=== PATIENT | male | born 1960 | race African-American/Black ===

== ENCOUNTER 2016-06-06 11:16 | Inpatient (IN) ==
[2016-06-06] MEDS ORDERED: KETOROLAC 30 MG/1 ML VIAL IV STA (11:31)
--- NOTE | 2016-06-06 11:34 | Emergency Department Note ---
Noel Raphael Brooke, am scribing for, and in the presence of, Hamzah Peñaloza MD 11:31 . Anabela Raphael James D, MD, personally performed the services described in this documentation, ascribed by Meka Cohen in my presence, and it is both accurate and complete . Arrival - Arrival Chief Complaint: Extremity Problem Stated Complaint: bilateral feet pain ED Nursing Triage Note: PAIN IN BILATERAL FEET PAIN AND LT.HAND HAND EDEMA AND PAIN. PT HAS HX OF GOUT AND HAS BEEN OUT OF HIS MEDS X 2 WEEKS. PT HAS NOT TAKEN ANY OF HIS MEDS. Mode of Arrival: Stretcher Limitations: No Limitations Source: Patient, RN Notes Reviewed Time Seen by Provider: 06/06/16 11:26 - History of Present Illness HPI Narrative: Patient is a 56 year old male, with history of gout, who presents to the ED with c/o bilateral hand, feet, and ankle pain. Patient says he has been out of his gout medication for the past two weeks. He says his left hand, foot, and ankle hurt worse than the right. He denies any vomiting or blood in his stool but did have a fever when he arrived at the ED. His temperature during triage was 101.7. Patient says he does not have any kidney problems. Patient says he has been coughing and states he has a "cold." Patient has not had the flu shot this year. He also has PMHx of HTN and pneumonia. Allergies/Adverse Reactions: Allergies Allergy/AdvReac Type Severity Reaction Status Date / Time Penicillins Allergy Unknown/Unable Verified 02/28/16 09:29 to obtain Home Medications: Home Medications Medication Instructions Recorded Confirmed Type Aspirin EC Tab 81 mg PO DAILY #30 tablet 03/05/16 Rx Carvedilol [Coreg] 6.25 mg PO BID 30 Days 03/05/16 Rx Colchicine [Colcrys] 0.6 mg PO BID 30 Days 03/05/16 Rx Pantoprazole Tab [Protonix Tab] 40 mg PO DAILY #30 tablet 03/05/16 Rx amLODIPine [Norvasc] 5 mg PO DAILY #30 tablet 03/05/16 Rx hydrALAZINE TAB [Apresoline Tab] 25 mg PO TID 30 Days 03/05/16 Rx Review of System - Review of System 12 point system: reviewed and no additional remarkable complaints except as stated - Review of System Constitutional: Present: fever Respiratory: Present: cough ("cold"). Absent: respiratory distress Gastrointestinal: Absent: vomiting, melena, hematochezia Musculoskeletal: Present: other (bilateral hand, feet, and ankle pain- left worse. ) Skin: Absent: rash Medical,Surgical,& Family Hx - Medical History Cardio: History of: Hypertension Rheumatology: History of;: Gout Respiratory: History of: Pneumonia Gastrointestinal: History of: GI Problems ("Peptic ulcer disease" but has never had endoscopy or upper GI series.) - Family History Family History: Reports;: Family Cancer, Family Diabetes, Family Heart Disease, Family Hypertension - Social History Smoking Status: Unknown if ever smoked Exam Vital Signs: Vital Signs Temperature 101.7 F H 06/06/16 11:16 Pulse Rate 101 H 06/06/16 11:16 Respiratory Rate 18 06/06/16 11:16 Blood Pressure 165/79 06/06/16 11:16 O2 Sat by Pulse Oximetry 98 06/06/16 11:16 GENERAL: This is a well-nourished well-developed black male in no apparent distress. VITAL SIGNS: Reviewed HEENT: Head is atraumatic and normocephalic. Pupils are equal round react to light. Extraocular movements are intact. Oropharynx is benign with moist mucous membranes. NECK: Neck is soft and supple without tenderness. There are no masses. There is no lymphadenopathy. LUNGS: Lungs are clear to auscultation. Chest rises symmetrically. There is no chest wall tenderness. CV: Heart is regular rate and rhythm without murmurs rubs or gallops. ABDOMEN: Abdomen is soft, nontender to palpation. There are no abdominal abnormal masses palpated. There is no organomegaly. Bowel sounds are present and active. SKIN: Skin is warm and dry. No rash. EXTREMITIES: Patient has swelling and warmth of the left hand along with swelling warmth and tenderness of the right first MTP joint and left ankle and left foot. Patient also has some tenderness and swelling of the right foot. NEUROLOGIC: [] Cranial nerves II through XII are intact. Motor is 5 over 5 in all extremities bilaterally. Deep tendon reflexes are 2+ and bilaterally equal. Course - Consultations Consultation #1: Discussed with hospitalist. Patient will be admitted to their service. Time: 13:25 Results - Labs CBC & BMP: 06/06/16 11:34 06/06/16 11:34 Lab Results: I have reviewed the patients labs Labs: Laboratory Tests 06/06/16 11:34 INR 1.2 Laboratory Tests 06/06/16 11:34 Uric Acid 9.7 H - Diagnostic Findings Procedure: Chest x-ray: image reviewed by me, report reviewed by me (No cardiomegaly, no pleural effusions, no infiltrates.), X-ray: image reviewed by me, report reviewed by me (X-ray of left hand: Osteoarthritis with some soft tissue swelling. X-ray bilateral feet: Osteoarthritis. X-ray of the left ankle : Osteoarthritis.) Disposition Clinical Impression: Polyarticular arthritis, History of gout, Hyperuricemia, Acute on chronic renal failure Case discussed with: patient Disposition: Still a Patient Condition: Stable Time of Disposition: 13:24
[2016-06-06] MEDS ORDERED: KETOROLAC 30 MG/1 ML VIAL ONE (12:08)
[2016-06-06 12:12] LABS: Basophils % 0.2 % (0.0-0.8); Eosinophils % 0.1 % (0.00-10.9); Hemoglobin 8.4 GM/DL (14.0-18.0); Immature Granulocytes % 0.7 %; Immature Granulocytes Absolute 0.12 #; Lymphocytes # 1.9 10*3/uL (1.4-4.0); Lymphocytes % 10.4 % (21.2-54.2); Mean Corpuscular HGB Conc 32.3 GM/DL (32-36); Mean Corpuscular Hemoglobin 22 PG (27-34); Mean Corpuscular Volume 69.1 FL (87-102); Mean Platelet Volume 10.6 FL (9.6-12.0); Monocytes # 2.4 10*3/uL (0.11-0.8); Monocytes % 12.9 % (1.7-12.7); Neutrophils # 13.8 10*3/uL (1.4-7.4); Neutrophils % 75.7 % (38.7-73.9); Platelet Count 322 T/CUMM (130-400); Red Blood Count 3.76 MC/CUMM (3.8-5.5); Red Cell Distribution Width 16.1 % (9.3-17.3); White Blood Count 18.3 T/CUMM (4-12)
--- NOTE | 2016-06-06 12:24 | XRay Report ---
History: Ankle pain. History of gout Date: 06/06/2016 Study: Left ankle 2 views Comparison exam: No previous ankle x-ray There is no acute fracture or dislocation. There is mild osteophyte formation of the tibiotalar joint. There is soft tissue ossification adjacent to the medial malleolus which may represent remote post traumatic soft tissue ossification. There is mild soft tissue swelling about the ankle. Impression: No acute bony abnormality. Osteoarthritis. Mild soft tissue swelling PROCEDURE INTERPRETED AT [facility] DEPARTMENT OF RADIOLOGY Final Report Signed by: Dr. Vidya Heller
--- NOTE | 2016-06-06 12:25 | XRay Report ---
History: Cough and fever Date: 06/06/2016 11:31 AM Study: Chest x-ray AP portable Comparison exam: Chest x-ray March 02, 2016 The cardiac silhouette is upper normal. There is no mediastinal mass. The pulmonary vasculature is not engorged. There is no pleural effusion. The lungs are generally clear. Shallow breath. Osseous structures are unremarkable. Impression: No acute cardiopulmonary process. No significant interval change PROCEDURE INTERPRETED AT [facility] DEPARTMENT OF RADIOLOGY Final Report Signed by: Dr. Vidya Heller
[2016-06-06 12:31] LABS: INR 1.2; PT Patient Result 13.2 SECS; Partial Thromboplastin Time 36.6 SECS (0-40)
--- NOTE | 2016-06-06 12:35 | XRay Report ---
History: Left hand pain and swelling. Fever Date: 06/06/2016 Study: Left hand 3 views Comparison exam: No previous hand x-ray There is no acute fracture, dislocation, or focal destructive osseous abnormality. There is mild osteophyte formation at the first carpometacarpal joint. There is nonspecific soft tissue swelling about the hand. Impression: Nonspecific soft tissue swelling about the hand. Osteoarthritis PROCEDURE INTERPRETED AT [facility] DEPARTMENT OF RADIOLOGY Final Report Signed by: Dr. Vidya Heller
--- NOTE | 2016-06-06 12:38 | XRay Report ---
History: Bilateral foot pain and swelling. History of gout Date: 06/06/2016 Study: Bilateral feet 2 views Comparison exam: No remote foot x-ray There is no acute fracture or dislocation. There is mild hallux valgus deformity bilaterally, more so on the right. There is mild osteophyte formation of the first MTP joint and at the dorsal aspect of either mid foot, right more than left. There is nonspecific soft tissue swelling about the feet of a mild nature. No radiopaque foreign body is seen. Impression: Osteoarthritis. No acute bony abnormality. No radiopaque foreign body seen PROCEDURE INTERPRETED AT [facility] DEPARTMENT OF RADIOLOGY Final Report Signed by: Dr. Vidya Heller
[2016-06-06 12:41] LABS: Eosinophils 1 % (0-10); Hypochromasia 1+; Lymphocytes 14 % (20-55); Platelet Estimate Adequate; Segmented Neutrophils 71 % (50-85); Total Cells Counted 100
[2016-06-06 12:45] LABS: Albumin 2.5 G/DL (3.4-5.0); Bilirubin,Total 0.8 MG/DL (0.2-1.0); Calcium 9.1 MG/DL (8.5-10.1); Osmolality,Calculated 287.5 MOS/KG (273-304); Potassium 5.1 MMOL/L (3.5-5.1); Total Protein 7.6 G/DL (6.4-8.3); Uric Acid 9.7 MG/DL (3.5-7.2)
[2016-06-06 13:16] LABS: Sedimentation Rate-Westergren 120 MM/HR (0-20)
[2016-06-06] MEDS ORDERED: methylPREDNISolone SOD SUC 125 MG/2 ML VIAL IV STA (13:23)
[2016-06-06] MEDS ORDERED: methylPREDNISolone SOD SUC 125 MG/2 ML VIAL ONE (13:28)
--- NOTE | 2016-06-06 14:31 | Ultrasound Report ---
History: Acute on chronic renal failure Date: 06/06/2016 Study: Renal ultrasound Comparison exam: March 04, 2016 renal ultrasound Real-time ultrasound images are captured and archived. The right kidney measures 10.3 x 4.9 x 5.7 cm; the left kidney measures 9.5 x 9.9 x 5.8 cm. There is no hydronephrosis or abnormal perinephric fluid. There is no renal mass. The renal parenchyma is mildly hyperechoic to the hepatic parenchyma compatible with some diffuse medical renal parenchymal disease similar to the previous study. There is gross color Doppler flow to either kidney. Impression: Medical renal parenchymal disease. No hydronephrosis PROCEDURE INTERPRETED AT [facility] DEPARTMENT OF RADIOLOGY Final Report Signed by: Dr. Vidya Heller
[2016-06-06] MEDS ORDERED: COLCHICINE 0.6 MG TABLET PO ONE (14:52)
[2016-06-06] MEDS ORDERED: ENOXAPARIN 30 MG/0.3 ML SYRINGE SUBCUT SCH (15:00)
--- NOTE | 2016-06-06 15:24 | Hospitalist History & Physical ---
Assessment and Plan - Time spent with patient Time spent with patient: Greater than 30 minutes (1) History of stroke Status: Acute Current Visit: Yes (2) Acute on chronic renal failure Status: Acute Current Visit: Yes (3) History of gout Status: Acute Current Visit: Yes (4) Hyperuricemia Status: Acute Current Visit: Yes (5) History of alcohol abuse Status: Acute Current Visit: No History of Present Illness Chief complaint: joint pain and swelling History of present illness: Mr. Parekh is a 56 year old male Mr. Parekh presented with pain in his left wrist swelling of his fingers and left joint pain in his left wrist. He has known history of gout. In fact he was recently seen by orthopedics with x-rays. He had declined aspiration and responded empirically to colchicine that he's taken on and off for quite some time he also had renal failure on his last admission 3 months ago and was seen by nephrology. Ultrasound of kidneys was done at that time. His creatinine is up was about 3.2. He was severely anemic with hemoglobin of 3 and he was transfused 6 units of packed red cells at that time. Was felt that this was more than likely from an ulcer but no obvious active bleeding was seen on upper endoscopy. He was on baby aspirin along with some on the medications. He ran out of his colchicine and blood pressure medications to weeks ago. He continues to drink alcohol with certainly is contributing to his gout flareup. His uric acid level is high and he is was told he is gout years ago. 3 months ago he had a small stroke causing right-sided weakness. At that time he was placed on aspirin after upper endoscopy did not show active bleeding. He does take a proton pump inhibitor but he is out of all his medications. He denies any chest pain or shortness of breath this time. He denies any worsening weakness on the right side are significant symptoms similar to prior admission. He has not noted any blood in his stools. He's being admitted to our service for worsening renal function. ER physician also was not aware the patient and gout and felt that he needs admission for polyarteritis workup as well. Assessment and plan for 06/06/2016: Acute gout Acute on chronic renal failure Chronic anemia History of hypertension currently hypotensive Recent stroke Patient was admitted to our service his creatinine is around 5 now. We will hydrate him and see if there is any improvement. I will not repeat another ultrasound of his kidneys since one was done 3 months ago. We will consult nephrology. We will try steroids for his gout. We will also give him 1 dose of colchicine but would avoid further colchicine for the time being. NSAIDs will be avoided as well. For now will continue holding his blood pressure medications. He does drink alcohol but denies withdrawal history. Certainly alcohol use on a fairly heavy basis contributes to his gout. Home Medications Medication Instructions Recorded Confirmed Type Aspirin EC Tab 81 mg PO DAILY #30 tablet 03/05/16 Rx Carvedilol [Coreg] 6.25 mg PO BID 30 Days 03/05/16 Rx Colchicine [Colcrys] 0.6 mg PO BID 30 Days 03/05/16 Rx Pantoprazole Tab [Protonix Tab] 40 mg PO DAILY #30 tablet 03/05/16 Rx amLODIPine [Norvasc] 5 mg PO DAILY #30 tablet 03/05/16 Rx hydrALAZINE TAB [Apresoline Tab] 25 mg PO TID 30 Days 03/05/16 Rx Allergies Allergy/AdvReac Type Severity Reaction Status Date / Time Penicillins Allergy Unknown/Unable Verified 02/28/16 09:29 to obtain Medical,Surgical,& Family Hx - Medical History Cardio: History of: Hypertension Rheumatology: History of;: Gout Respiratory: History of: Pneumonia Renal: History of: Renal Failure Gastrointestinal: History of: GI Problems ("Peptic ulcer disease" but has never had endoscopy or upper GI series.) - Surgical History Surgical History: noncontributory - Family History Family History: Reports;: Family Cancer, Family Diabetes, Family Heart Disease, Family Hypertension - Social History Smoking Status: Current every day smoker Have you smoked in the last 12 months: Yes Time spent discussing smoking cessation with patient: 3 to 10 minutes Frequency of Alcohol Use: Frequently Type of Drug Use: Marijuana Marital Status: Life Partner Functional capacity: independent ambulation 12 point system: reviewed and no additional remarkable complaints except as stated Exam - Constitutional Vitals: Period Temp Pulse Resp BP Sys/[place] Pulse Ox Last 24 Hr 79-90 18 112-148/64-71 97-100 Exam: Gen.: In no acute distress Head and neck: Pupils are reactive neck is supple Cardiovascular: S1-S2 with regular rate and rhythm Respiratory: Lungs are clear to auscultation and percussion Abdomen: Soft, bowel sounds are positive Extremities: Swelling in the left wrist and left ankle with significant tenderness on palpation Neuro: Grossly intact Results - Labs CBC & BMP: 06/06/16 11:34 06/06/16 11:34 Lab Results: I have reviewed the past 24 hour labs
[2016-06-06] MEDS ORDERED: PNEUMOCOCCAL VACCINE (13 VALENT) 0.5 ML SYRINGE IM ONE (15:42)
[2016-06-06] MEDS ORDERED: INFLUENZA VIRUS VACCINE 0.5 ML SYRINGE IM ONE (15:45)
--- NOTE | 2016-06-06 16:17 | Nephrology Consult Note ---
History of Present Illness Chief complaint: CKD Stage 4 History of present illness: Mr. Parekh is a 56 year old male with progressive chronic renal impairment. He was here it 3 months ago with a creatinine of 3-1/2 and now back with a creatinine of 5. He presented in February with GI bleed and profound anemia from peptic ulcer and also polyarticular gout. Returns now with the gout involving the left wrist and left ankle. He says that he ran out of his medicines 2 weeks ago and could not afford to buy any. He tells me that he has not been taking any Aleve but was given some "inflammation" medicine by a friend that he's been taking. He is seen no signs of bleeding per rectum and has had no significant nausea or abdominal pain. On exam he is in no distress his neck without jugular venous distention and heart without rub or gallop. His left wrist is swollen and tender as is his left ankle. There is no significant edema otherwise. Uric acid is approximately 9 and creatinine approximately 5. Ultrasound demonstrates no obstruction. Impression: chronic renal failure which is slowly progressive #2 gout which is recurrent due to medicine noncompliance Plan I agree with avoiding nonsteroidals for multiple reasons, steroids and low- dose cultures seen her certainly good idea. We need to resume allopurinol even though he is in the midst of a crisis. I think he understands now that he must take allopurinol in order to avoid recurrent attacks of gout. As regards his renal failure will continue to address his blood pressure but in all likelihood he will require an AV fistula and preparation for dialysis in the next few months. Home Medications Medication Instructions Recorded Confirmed Type Aspirin EC Tab 81 mg PO DAILY #30 tablet 03/05/16 06/06/16 Rx Colchicine [Colcrys] 0.6 mg PO BID 30 Days 03/05/16 06/06/16 Rx Pantoprazole Tab [Protonix Tab] 40 mg PO DAILY #30 tablet 03/05/16 06/06/16 Rx amLODIPine [Norvasc] 5 mg PO DAILY #30 tablet 03/05/16 06/06/16 Rx hydrALAZINE TAB [Apresoline Tab] 25 mg PO TID 30 Days 03/05/16 06/06/16 Rx Allergies Allergy/AdvReac Type Severity Reaction Status Date / Time Penicillins Allergy Unknown/Unable Verified 02/28/16 09:29 to obtain Medical,Surgical,& Family Hx - Medical History Cardio: History of: Hypertension Neurology: History of: Cerebrovascular Accident (DRAGS RIGHT LEG) Rheumatology: History of;: Gout Respiratory: History of: Pneumonia Renal: History of: Renal Failure Gastrointestinal: History of: GI Problems ("Peptic ulcer disease" but has never had endoscopy or upper GI series.) - Family History Family History: Reports;: Family Cancer, Family Diabetes, Family Heart Disease, Family Hypertension - Social History Smoking Status: Current every day smoker Frequency of Alcohol Use: Frequently Type of Drug Use: Marijuana Review of Systems 12 point system: reviewed and no additional remarkable complaints except as stated Exam - Vital Signs Vital signs: Period Temp Pulse Resp BP Sys/[place]ver[place] Pulse Ox Last 24 Hr 98.5 F 77-90 17-18 112-156/64-73 97-100 - General Appearance General appearance: well-developed, well-nourished, appears started age EENT: ATNC Neck: no JVD, no thyromegaly, no carotid bruit, supple Respiratory: no kyphosis, no scoliosis Cardiology: no murmurs, no rub, no gallops, no edema, regular rate, regular rhythm, normal S1, normal S2 Gastrointestinal: normoactive bowel sounds Integumentary: no rash Neurologic: no focal deficit, no asterixis, alert and oriented x3, reflexes 2+ and symmetric, gait normal, strength 5/5 Musculoskeletal: no deformities, no erythema, no cyanosis, no clubbing Psychiatric: mood/affect appropriate (swollen left wrist and ankle), cooperative Results - Labs CBC & BMP: 06/06/16 11:34 06/06/16 11:34 Assessment and Plan - Time spent with patient Time spent with patient: Greater than 30 minutes (1) Acute on chronic renal failure Status: Acute Current Visit: Yes (2) Gout attack Status: Acute Current Visit: No Qualifiers: Gout site: multiple sites Gout etiology: unspecified cause Qualified Code (s): M10.9 - Gout, unspecified
[2016-06-06] MEDS: SODIUM CHLORIDE 0.9% 1,000 ML IV SCH ×2 (16:20→23:02)
[2016-06-06] MEDS: methylPREDNISolone SOD SUC 125 MG/2 ML VIAL IV SCH ×2 (16:20→20:50)
[2016-06-07] MEDS: methylPREDNISolone SOD SUC 125 MG/2 ML VIAL IV SCH ×2 (02:07→09:55)
[2016-06-07 06:46] LABS: Basophils % 0.1 % (0.0-0.8); Hematocrit 25.3 VOL% (42.0-52.0); Immature Granulocytes % 0.7 %; Immature Granulocytes Absolute 0.13 #; Lymphocytes # 0.7 10*3/uL (1.4-4.0); Lymphocytes % 3.8 % (21.2-54.2); Mean Corpuscular HGB Conc 31.6 GM/DL (32-36); Mean Corpuscular Hemoglobin 22 PG (27-34); Mean Corpuscular Volume 69.9 FL (87-102); Mean Platelet Volume 10.7 FL (9.6-12.0); Monocytes # 0.7 10*3/uL (0.11-0.8); Monocytes % 3.8 % (1.7-12.7); Neutrophils # 16.2 10*3/uL (1.4-7.4); Neutrophils % 91.6 % (38.7-73.9); Platelet Count 329 T/CUMM (130-400); Red Blood Count 3.62 MC/CUMM (3.8-5.5); Red Cell Distribution Width 15.9 % (9.3-17.3); White Blood Count 17.7 T/CUMM (4-12)
[2016-06-07 07:11] LABS: Alanine Aminotransferase 25 U/L (16-61); Alkaline Phosphatase 82 U/L (45-117); Aspartate Amino Transferase 36 U/L (0-37); Bilirubin,Total < 0.39 MG/DL (0.2-1.0); Blood Urea Nitrogen 69 MG/DL (7-18); Calcium 8.4 MG/DL (8.5-10.1); Glucose 231 MG/DL (74-106); Osmolality,Calculated 309.1 MOS/KG (273-304); Potassium 5.2 MMOL/L (3.5-5.1); Sodium 142 MMOL/L (136-145); Total Protein 5.8 G/DL (6.4-8.3)
[2016-06-07 07:33] LABS: Band Neutrophils 1 % (0-10); Hypochromasia 1+; Lymphocytes 3 % (20-55); Platelet Estimate Adequate; Segmented Neutrophils 93 % (50-85); Total Cells Counted 100
[2016-06-07] MEDS: SODIUM CHLORIDE 0.9% 1,000 ML IV SCH (07:50)
[2016-06-07] MEDS ORDERED: ALLOPURINOL 100 MG TABLET PO SCH (09:00)
[2016-06-07] MEDS ORDERED: ASPIRIN EC 81 MG TABLET PO SCH (09:00)
--- NOTE | 2016-06-07 10:24 | Nephrology Progress Note ---
Nephrology - PN: Subj Interval history: Mr. Parekh is seen in follow-up of his chronic renal impairment. His creatinine is 5.6 which is stable. He is having much less pain from his left wrist and left ankle gouty arthritis. We discussed the fact that he needs to continue with allopurinol to prevent gout. We will be glad to see him in follow -up if he will come to the office. We discussed Mr. Parekh's illness with Dr. Bains and I agree that he is probably ready to go home and can continue these meds at home. I do think he was having some difficulty getting them but hopefully they can become a priority for him and most of these medicines are going to be reasonably affordable. Exam (PN)-Nephrology - Vital Signs Vital signs: Period Temp Pulse Resp BP Sys/[place] Pulse Ox Last 24 Hr 97.3 F-98.5 F 62-90 17-20 112-156/64-81 93-100 - Lab 06/07/16 04:53 06/07/16 04:53 Most recent lab results Calcium 8.4 MG/DL (8.5-10.1) L 06/07/16 04:53 Assessment and Plan (1) Acute on chronic renal failure Status: Acute Current Visit: Yes (2) Gout attack Status: Acute Current Visit: No Qualifiers: Gout site: multiple sites Gout etiology: unspecified cause Qualified Code (s): M10.9 - Gout, unspecified
--- NOTE | 2016-06-07 11:09 | Discharge Summary ---
Hospital Course - Hospital Course Hospital Course: The patient essentially presented with an acute gout flareup. His renal functions were worse from 3 to around 5. He was admitted overnight per ER physician's request. We gave him IV steroids and he is significantly improved. Is able to move his ankle and his wrist and the swelling is essentially resolved. We did I asked Dr. Delgado to see him and he will follow him in his office on an outpatient basis. Patient was taking some nonsteroidals from his friend which we have advised him not to do so. Dr. Delgado did add low-dose Zyloprim and feels that he should be able to tolerate it. We also added low- dose colchicine adjusted for his renal functions. I'm giving him a short course of oral prednisone for his gout. I'm also starting him on iron supplements. Patient has prior history of ulcers and anemia. He's on baby aspirin for niece recent stroke and we will have to continue that. We will continue with Protonix for GI prophylaxis and I'm giving him a prescription for iron supplements. We'll also resume his blood pressure medications. He will be discharged home for further outpatient care. - Time spent with patient Time with patient DS: Less than 30 minutes Diagnosis - Discharge Diagnosis (1) History of stroke Status: Acute (2) Acute on chronic renal failure Status: Acute (3) History of gout Status: Acute (4) Hyperuricemia Status: Acute (5) History of alcohol abuse Status: Acute Specialty Discharge - Follow Up or Referrals Follow up with: Boni Delgado MD [Physician] - 06/22/16 (you need to call on Wednesday at to get a time for this appointment. You need to tell them that Dr Delgado saw you in the hospital for kidney disease, with a creatine of 5.) Discharge Plan - Discharge Medications New Allopurinol [Zyloprim] 100 mg PO DAILY #30 tablet HYDROcodone/ACETAMIN 7.5-325 [[place] 7.5-325] 1 tablet PO Q4H PRN #15 tablet PRN Reason: Pain Moderate (4-7) Ferrous Sulfate 325 mg PO DAILY #30 tablet prednisoLONE TAB [prednisoLONE Tab] 30 mg PO DAILY #10 tablet Continue Aspirin EC Tab 81 mg PO DAILY #30 tablet amLODIPine [Norvasc] 5 mg PO DAILY #30 tablet hydrALAZINE TAB [Apresoline Tab] 25 mg PO TID 30 Days Pantoprazole Tab [Protonix Tab] 40 mg PO DAILY #30 tablet Discontinued Colchicine [Colcrys] 0.6 mg PO BID 30 Days - Follow Up or Referral Follow Up: Boni Delgado MD [Physician] - 06/22/16 (you need to call on Wednesday at to get a time for this appointment. You need to tell them that Dr Delgado saw you in the hospital for kidney disease, with a creatine of 5.) - Forms/Instructions Instructions: Allopurinol (By mouth), Iron Supplements (By mouth), Hydrocodone/ Acetaminophen (By mouth), Prednisone (By mouth), Colchicine (By mouth), Pantoprazole (By mouth), Chronic Kidney Disease (DC), Acute Gouty Arthritis (DC) Exam - Constitutional Vitals: Period Temp Pulse Resp BP Sys/[place] Pulse Ox Last 24 Hr 97.3 F-98.5 F 62-90 17-20 112-156/64-81 93-100 Discharge Results Procedures and tests throughout hospitalization: Pending Orders 06/08/16 04:00 Comp Blood Count Auto Diff IN AM Labs on day of discharge: Labs from last 24 hours 06/07/16 06/07/16 04:53 04:53 WBC 17.7 H RBC 3.62 L Hgb 8.0 L Hct 25.3 L MCV 69.9 L MCH 22 L MCHC 31.6 L RDW 15.9 Plt Count 329 MPV 10.7 Neut % (Auto) 91.6 H Lymph % (Auto) 3.8 L [place] % (Auto) 3.8 Eos % (Auto) 0.0 Baso % (Auto) 0.1 Neut # (Auto) 16.2 H Lymph # (Auto) 0.7 L [place] # (Auto) 0.7 Eos # (Auto) 0.0 Baso # (Auto) 0.0 Total Counted 100 Immature Gran % 0.7 Nucleated RBC % 0.0 Immature Gran # 0.13 Segmented Neutrophils 93 H Band Neutrophils 1 Lymphocytes 3 L Monocytes 3 Nucleated RBCs # 0.00 Platelet Estimate Adequate Hypochromasia 1+ Morphology Comment Sodium 142 Potassium 5.2 H Chloride 107 Carbon Dioxide 21 Anion Gap 19.2 H BUN 69 H D Creatinine 5.60 H GFR Calculation 14 BUN/Creatinine Ratio 12.00 Glucose 231 H Calculated Osmolality 309.1 H Calcium 8.4 L Total Bilirubin < 0.39 AST 36 ALT 25 Alkaline Phosphatase 82 Total Protein 5.8 L Albumin 2.0 L Globulin 3.8 H Albumin/Globulin Ratio 0.5 L DS: Provider Date of admission: 06/06/16 13:27 Primary care physician: . No PCP Attending physician on admission: Eber Chapman MD Consults: 06/06/16 14:50 Consult to Physician [CONS] Routine Comment: Consulting Provider: Boni Delgado Consult to Specialist Group: Nephrology When should Consulting Provider be notified: Now Consult Notification Comment: worsening renal failure 06/06/16 14:58 Consult to Pharmacy [CONS] Routine Reason for Pharmacy Consult: Adjust Meds Renal Funct Discharging clinician: Eber Chapman MD
[2016-06-07 13:35] VITALS: BP 150/81
== END 2016-06-07 13:10 | disposition home or self-care (01) | DRG 554 ==
LOC: EDBD → EDUNIT# → N.ED 11:16 → N.EDINP 13:27 → N.5E 14:08
PROVIDERS: ADMIT Internal Medicine; ATTEND Internal Medicine

== ENCOUNTER 2019-04-16 10:43 | Inpatient (IN) ==
[2019-04-16 11:49] LABS: Basophils % 0.3 % (0.0-0.8); Eosinophils # 0.4 10*3/uL (0.0-0.87); Eosinophils % 4.2 % (0.00-10.9); Hematocrit 20.3 VOL% (42.0-52.0); Immature Granulocytes % 0.5 %; Immature Granulocytes Absolute 0.04 #; Lymphocytes # 1.4 10*3/uL (1.4-4.0); Lymphocytes % 15.9 % (21.2-54.2); Monocytes % 7.3 % (1.7-12.7); Neutrophils % 71.8 % (38.7-73.9); Platelet Count 260 T/CUMM (130-400); Red Blood Count 2.94 MC/CUMM (3.8-5.5); Red Cell Distribution Width 18.7 % (9.3-17.3); White Blood Count 8.9 T/CUMM (4-12)
[2019-04-16 11:53] LABS: Hemoglobin 6.1 GM/DL (14.0-18.0)
[2019-04-16 12:04] LABS: Apearance,Urine CLEAR (Clear); Bacteria,Urine Occasional /HPF (Few); Bilirubin,Urine Negative (Negative); Blood, Urine Moderate mg/dL (Negative); Glucose,Urine (UA) 50 mg/dL (Negative); Ketones,Urine Negative (Negative); Nitrite,Urine Negative (Negative); Protein,Urine 100 MG/DL; RBC,Urine 1 /HPF (0-4); Squamous Epithelial Cell,Urine Occasional /HPF (0-10); Urine Color Straw (Yellow); Urine Specific Gravity 1.009 (1.001-1.035); Urine Urobilinogen < 2.0 EU/DL (0.2-1.0); WBC,Urine 6 /HPF (0-6)
[2019-04-16 12:13] LABS: Alanine Aminotransferase 22 U/L (16-61); Albumin 2.9 G/DL (3.4-5.0); Alkaline Phosphatase 198 U/L (45-117); Aspartate Amino Transferase 20 U/L (0-37); Bilirubin,Total < 0.39 MG/DL (0.2-1.0); Blood Urea Nitrogen 61 MG/DL (7-18); Calcium 7.5 MG/DL (8.5-10.1); Estimated Glom Filtration Rate 11 ML/MIN; Glucose 86 MG/DL (74-106); Osmolality,Calculated 303.7 MOS/KG (273-304); Total Protein 6.5 G/DL (6.4-8.3)
[2019-04-16 12:25] LABS: Barbiturates Screen,Urine Negative (Negative); Benzodiazepines Screen,Urine Negative (Negative); Cannabinoid Screen,Urine Negative (Negative); Opiate Screen,Urine Negative (Negative); Phencyclidine Screen,Urine Negative (Negative)
[2019-04-16] MEDS ORDERED: ACETAMINOPHEN 325 MG TABLET PO PRN (14:25)
[2019-04-16] MEDS ORDERED: NICOTINE 21 MG/24 HR PATCH TRANSDERM PRN (14:25)
[2019-04-16] MEDS ORDERED: ONDANSETRON 4 MG/2 ML VIAL IV PRN (14:25)
[2019-04-16] MEDS ORDERED: MAGNESIUM SULF RIDER 2 GM in PREMIX 1 EACH IV PRN (14:31)
[2019-04-16] MEDS ORDERED: POTASSIUM CHLORIDE 20 MEQ TABLET PO PRN (14:31)
[2019-04-16] MEDS ORDERED: MAGNESIUM SULF RIDER 4 GM in PREMIX 1 EACH IV PRN (14:31)
[2019-04-16] MEDS ORDERED: diphenhydrAMINE 50 MG/1 ML VIAL IV PRN (14:34)
[2019-04-16] MEDS ORDERED: SODIUM CHLORIDE 0.9% 1,000 ML IV PRN (14:34)
[2019-04-16 14:58] LABS: CKMB % 2.1 %; Troponin I 0.038 NG/ML (0.00-0.045)
[2019-04-16] MEDS ORDERED: hydrALAZINE 20 MG/1 ML VIAL IV STA (15:21)
[2019-04-16] MEDS ORDERED: hydrALAZINE 20 MG/1 ML VIAL ONE (15:25)
[2019-04-16 16:56] LABS: Hematocrit 21.4 VOL% (42.0-52.0); Hemoglobin 6.5 GM/DL (14.0-18.0)
[2019-04-16] MEDS: FUROSEMIDE 40 MG/4 ML VIAL IV SCH (16:56)
[2019-04-16 17:20] LABS: CKMB % 2.1 %
[2019-04-16] MEDS: FUROSEMIDE 20 MG/2 ML VIAL IV PRN ×2 (21:49→23:58)
[2019-04-17] MEDS ORDERED: hydrALAZINE 20 MG/1 ML VIAL IV PRN (00:45)
[2019-04-17 02:01] LABS: Basophils % 0.5 % (0.0-0.8); Eosinophils # 0.3 10*3/uL (0.0-0.87); Eosinophils % 4.3 % (0.00-10.9); Hemoglobin 7.1 GM/DL (14.0-18.0); Immature Granulocytes % 0.4 %; Immature Granulocytes Absolute 0.03 #; Lymphocytes # 1.5 10*3/uL (1.4-4.0); Lymphocytes % 19.7 % (21.2-54.2); Mean Corpuscular HGB Conc 30.9 GM/DL (32-36); Mean Corpuscular Volume 70.6 FL (87-102); Monocytes % 7.7 % (1.7-12.7); Neutrophils % 67.4 % (38.7-73.9); Platelet Count 229 T/CUMM (130-400); Red Blood Count 3.26 MC/CUMM (3.8-5.5); Red Cell Distribution Width 20.8 % (9.3-17.3); White Blood Count 7.4 T/CUMM (4-12)
[2019-04-17 02:08] LABS: INR 1.2; PT Patient Result 12.9 SECS (9.6-12.2)
[2019-04-17 02:29] LABS: Albumin 2.6 G/DL (3.4-5.0); Bilirubin,Total 0.5 MG/DL (0.2-1.0); Calcium 7.8 MG/DL (8.5-10.1); Osmolality,Calculated 308.4 MOS/KG (273-304); Risk Ratio 2.02; Thyroid Stimulating Hormone 2.03 uIU/ml (0.358-3.74); Total Protein 6.1 G/DL (6.4-8.3); VLDL CHOLESTEROL 9.4 MG/DL
[2019-04-17 04:07] LABS: Troponin I 0.052 NG/ML (0.00-0.045)
[2019-04-17] MEDS ORDERED: SODIUM CHLORIDE 0.9% 1,000 ML IV PRN ×2 (06:38→08:53)
[2019-04-17] MEDS ORDERED: FUROSEMIDE 40 MG/4 ML VIAL IV ONE ×2 (06:39)
[2019-04-17] MEDS: FUROSEMIDE 40 MG/4 ML VIAL IV SCH ×2 (08:51→16:38)
[2019-04-17] MEDS: PANTOPRAZOLE 40 MG TABLET PO SCH (08:51)
[2019-04-17] MEDS ORDERED: amLODIPine 10 MG TABLET PO SCH (09:00)
[2019-04-17] MEDS: MAGNESIUM CHLORIDE 64 MG TABLET PO SCH ×2 (11:49→20:19)
[2019-04-17] MEDS: FUROSEMIDE 20 MG/2 ML VIAL IV PRN ×2 (14:28→20:19)
[2019-04-18 00:11] LABS: Hemoglobin 8.6 GM/DL (14.0-18.0)
[2019-04-18 06:27] LABS: Basophils % 0.5 % (0.0-0.8); Eosinophils # 0.4 10*3/uL (0.0-0.87); Eosinophils % 6.5 % (0.00-10.9); Hematocrit 26.5 VOL% (42.0-52.0); Hemoglobin 8.4 GM/DL (14.0-18.0); Immature Granulocytes % 0.6 %; Immature Granulocytes Absolute 0.04 #; Lymphocytes # 1.1 10*3/uL (1.4-4.0); Lymphocytes % 16.4 % (21.2-54.2); Mean Corpuscular HGB Conc 31.7 GM/DL (32-36); Mean Corpuscular Volume 72.6 FL (87-102); Monocytes % 7.4 % (1.7-12.7); NRBC # 0.02 10*3/uL; Neutrophils % 68.6 % (38.7-73.9); Platelet Count 229 T/CUMM (130-400); Red Blood Count 3.65 MC/CUMM (3.8-5.5); Red Cell Distribution Width 21.9 % (9.3-17.3); White Blood Count 6.5 T/CUMM (4-12)
[2019-04-18 06:33] LABS: INR 1.2; PT Patient Result 12.7 SECS (9.6-12.2)
[2019-04-18 06:59] LABS: Albumin 2.6 G/DL (3.4-5.0); Bilirubin,Total 1.1 MG/DL (0.2-1.0); Calcium 7.9 MG/DL (8.5-10.1); Osmolality,Calculated 309.4 MOS/KG (273-304); Total Protein 5.9 G/DL (6.4-8.3)
[2019-04-18 07:01] LABS: % Iron Saturation 14.1 % (18-50); Ferritin 129.3 ng/ml (26-388)
[2019-04-18 07:03] LABS: Calcium 7.9 MG/DL (8.5-10.1); Osmolality,Calculated 307.7 MOS/KG (273-304)
[2019-04-18 08:27] LABS: Folate 6.5 NG/ML (5.4-24.0)
[2019-04-18] MEDS: FUROSEMIDE 40 MG/4 ML VIAL IV SCH ×2 (08:59→15:52)
[2019-04-18] MEDS: PANTOPRAZOLE 40 MG TABLET PO SCH (08:59)
[2019-04-18] MEDS: MAGNESIUM CHLORIDE 64 MG TABLET PO SCH ×2 (09:00→21:12)
[2019-04-18] MEDS ORDERED: EPOETIN ALFA 10,000 UNIT/1 ML VIAL SUBCUT ONE (09:42)
[2019-04-18] MEDS ORDERED: IRON SUCROSE 300 MG in SODIUM CHLORIDE 0.9% 100 ML IV ONE (10:00)
[2019-04-18] MEDS: ALLOPURINOL 100 MG TABLET PO SCH (21:12)
[2019-04-19 04:46] LABS: Basophils % 0.5 % (0.0-0.8); Eosinophils # 0.5 10*3/uL (0.0-0.87); Hematocrit 26.8 VOL% (42.0-52.0); Hemoglobin 8.5 GM/DL (14.0-18.0); INR 1.1; Immature Granulocytes % 0.2 %; Immature Granulocytes Absolute 0.01 #; Lymphocytes # 1.1 10*3/uL (1.4-4.0); Mean Corpuscular HGB Conc 31.7 GM/DL (32-36); Mean Corpuscular Volume 71.8 FL (87-102); Mean Platelet Volume 10.6 FL (9.6-12.0); NRBC # 0.03 10*3/uL; Neutrophils % 69.3 % (38.7-73.9); PT Patient Result 12.3 SECS (9.6-12.2); Platelet Count 246 T/CUMM (130-400); Red Blood Count 3.73 MC/CUMM (3.8-5.5); Red Cell Distribution Width 22.2 % (9.3-17.3); White Blood Count 6.6 T/CUMM (4-12)
[2019-04-19 05:13] LABS: Albumin 2.6 G/DL (3.4-5.0); Bilirubin,Total 0.6 MG/DL (0.2-1.0); Calcium 7.8 MG/DL (8.5-10.1); Osmolality,Calculated 308.8 MOS/KG (273-304); Total Protein 5.8 G/DL (6.4-8.3)
[2019-04-19 05:16] LABS: Hypochromasia 1+; Platelet Estimate Adequate
[2019-04-19 05:17] LABS: Target Cells Few
[2019-04-19] MEDS: FUROSEMIDE 40 MG/4 ML VIAL IV SCH ×2 (09:09→17:08)
[2019-04-19] MEDS: MAGNESIUM CHLORIDE 64 MG TABLET PO SCH ×2 (09:10→20:42)
[2019-04-19] MEDS: PANTOPRAZOLE 40 MG TABLET PO SCH (09:10)
[2019-04-19] MEDS: ALLOPURINOL 100 MG TABLET PO SCH (20:42)
[2019-04-20 06:42] LABS: Basophils % 0.3 % (0.0-0.8); Eosinophils # 0.4 10*3/uL (0.0-0.87); Eosinophils % 5.2 % (0.00-10.9); Hematocrit 27.7 VOL% (42.0-52.0); Hemoglobin 8.8 GM/DL (14.0-18.0); Immature Granulocytes % 0.3 %; Immature Granulocytes Absolute 0.02 #; Lymphocytes % 14.3 % (21.2-54.2); Mean Corpuscular HGB Conc 31.8 GM/DL (32-36); Mean Corpuscular Volume 71.8 FL (87-102); Mean Platelet Volume 10.3 FL (9.6-12.0); Monocytes % 8.5 % (1.7-12.7); Neutrophils % 71.4 % (38.7-73.9); Platelet Count 246 T/CUMM (130-400); Red Blood Count 3.86 MC/CUMM (3.8-5.5); Red Cell Distribution Width 22.6 % (9.3-17.3); White Blood Count 6.7 T/CUMM (4-12)
[2019-04-20] MEDS ORDERED: CLINDAMYCIN INJ 900 MG in PREMIX 1 EACH IV ONE (06:53)
[2019-04-20 06:58] LABS: Calcium 7.9 MG/DL (8.5-10.1)
[2019-04-20 07:10] LABS: Anisocytosis 2+; Platelet Estimate Normal
[2019-04-20 07:11] LABS: Hypochromasia Slight; Poikilocytosis 1+; Polychromasia Slight; Target Cells Few
[2019-04-20] MEDS: FUROSEMIDE 20 MG/2 ML VIAL IV PRN (08:21)
[2019-04-20] MEDS: MAGNESIUM CHLORIDE 64 MG TABLET PO SCH ×2 (08:22→21:18)
[2019-04-20] MEDS: PANTOPRAZOLE 40 MG TABLET PO SCH (08:22)
[2019-04-20] MEDS: FUROSEMIDE 40 MG/4 ML VIAL IV SCH ×2 (08:40→17:36)
[2019-04-20] MEDS ORDERED: PROPOFOL 200 MG/20 ML VIAL IV ONE ×2 (09:00→12:16)
[2019-04-20] MEDS ORDERED: LIDOCAINE 2% 5 ML VIAL ONE ×2 (09:00→12:16)
[2019-04-20] MEDS ORDERED: LIDOCAINE 1% 20 ML VIAL ONE (10:37)
[2019-04-20] MEDS ORDERED: BUPIVACAINE MPF 0.25% 30 ML VIAL ONE (10:37)
[2019-04-20] MEDS ORDERED: HEPARIN 5,000 UNIT/1 ML VIAL ONE (10:39)
[2019-04-20] MEDS ORDERED: BISACODYL 5 MG TABLET PO ONE (12:00)
[2019-04-20] MEDS ORDERED: MIDAZOLAM 2 MG/2 ML VIAL ONE (12:16)
[2019-04-20] MEDS ORDERED: DEXAMETHASONE 4 MG/1 ML VIAL ONE (12:16)
[2019-04-20] MEDS ORDERED: ePHEDrine 50 MG/ML AMP ONE (12:16)
[2019-04-20] MEDS ORDERED: ONDANSETRON 4 MG/2 ML VIAL ONE (12:16)
[2019-04-20] MEDS ORDERED: PHENYLEPHRINE 1 MG/10 ML SYRINGE IV ONE (12:17)
[2019-04-20] MEDS ORDERED: GLYCOPYRROLATE 0.4 MG/2 ML VIAL ONE (12:17)
[2019-04-20 15:15] LABS: Hepatitis B Surface Ag Quant 0.12 Index; Hepatitis B Surface Ag Result Negative (Negative)
[2019-04-20] MEDS ORDERED: POLYETHYLENE GLYCOL POWDER 255 GM BOTTLE PO ONE (16:00)
[2019-04-20] MEDS: ALLOPURINOL 100 MG TABLET PO SCH (21:18)
[2019-04-21] MEDS ORDERED: MAGNESIUM CITRATE 300 ML BOTTLE PO ONE (04:00)
[2019-04-21 05:06] LABS: Basophils % 0.2 % (0.0-0.8); Hematocrit 28.7 VOL% (42.0-52.0); Hemoglobin 9.1 GM/DL (14.0-18.0); Immature Granulocytes % 0.4 %; Immature Granulocytes Absolute 0.02 #; Mean Corpuscular HGB Conc 31.7 GM/DL (32-36); Mean Corpuscular Volume 71.4 FL (87-102); Mean Platelet Volume 10.1 FL (9.6-12.0); NRBC # 0.02 10*3/uL; Neutrophils % 70.4 % (38.7-73.9); Platelet Count 250 T/CUMM (130-400); Red Blood Count 4.02 MC/CUMM (3.8-5.5); Red Cell Distribution Width 22.5 % (9.3-17.3); White Blood Count 5.4 T/CUMM (4-12)
[2019-04-21 05:49] LABS: Hypochromasia 2+; Platelet Estimate Normal; Target Cells 3+
[2019-04-21 05:50] LABS: Anisocytosis 1+; Microcytosis 1+; Ovalocytes Few; Tear Drop Cells Few
[2019-04-21 06:05] LABS: Albumin 2.7 G/DL (3.4-5.0); Bilirubin,Total 0.5 MG/DL (0.2-1.0); Calcium 8.1 MG/DL (8.5-10.1); Osmolality,Calculated 296.4 MOS/KG (273-304); Total Protein 6.2 G/DL (6.4-8.3)
[2019-04-21] MEDS ORDERED: PROPOFOL 200 MG/20 ML VIAL IV ONE (09:00)
[2019-04-21] MEDS ORDERED: LIDOCAINE 2% 5 ML VIAL ONE (09:00)
[2019-04-21] MEDS: PANTOPRAZOLE 40 MG TABLET PO SCH (11:29)
[2019-04-21] MEDS: MAGNESIUM CHLORIDE 64 MG TABLET PO SCH ×2 (11:29→21:03)
[2019-04-21] MEDS: FUROSEMIDE 40 MG/4 ML VIAL IV SCH ×2 (11:29→17:49)
[2019-04-21] MEDS: ALLOPURINOL 100 MG TABLET PO SCH (21:03)
[2019-04-22 05:08] LABS: Basophils % 0.3 % (0.0-0.8); Eosinophils # 0.4 10*3/uL (0.0-0.87); Eosinophils % 5.8 % (0.00-10.9); Hematocrit 27.3 VOL% (42.0-52.0); Hemoglobin 8.7 GM/DL (14.0-18.0); Immature Granulocytes % 0.4 %; Immature Granulocytes Absolute 0.03 #; Lymphocytes # 1.6 10*3/uL (1.4-4.0); Lymphocytes % 21.7 % (21.2-54.2); Mean Corpuscular HGB Conc 31.9 GM/DL (32-36); Mean Corpuscular Volume 70.4 FL (87-102); Mean Platelet Volume 10.5 FL (9.6-12.0); Monocytes % 8.6 % (1.7-12.7); Neutrophils % 63.2 % (38.7-73.9); Platelet Count 211 T/CUMM (130-400); Red Blood Count 3.88 MC/CUMM (3.8-5.5); Red Cell Distribution Width 21.9 % (9.3-17.3); White Blood Count 7.2 T/CUMM (4-12)
[2019-04-22 05:31] LABS: Albumin 2.5 G/DL (3.4-5.0); Bilirubin,Total 0.4 MG/DL (0.2-1.0); Calcium 7.9 MG/DL (8.5-10.1); Osmolality,Calculated 294.8 MOS/KG (273-304); Total Protein 5.8 G/DL (6.4-8.3)
[2019-04-22] MEDS: FUROSEMIDE 40 MG/4 ML VIAL IV SCH (08:24)
[2019-04-22] MEDS: MAGNESIUM CHLORIDE 64 MG TABLET PO SCH (08:25)
[2019-04-22] MEDS: PANTOPRAZOLE 40 MG TABLET PO SCH (08:25)
[2019-04-22 14:18] VITALS: BP 158/84
== END 2019-04-22 15:55 | disposition home or self-care (01) | DRG 194 ==
LOC: N.ED 10:43 → N.EDINP 14:25 → N.5E 16:13
PROVIDERS: ADMIT Internal Medicine; ATTEND Internal Medicine